=== PATIENT | female | born 1935 | race Caucasian/White ===

== ENCOUNTER 2018-12-31 10:42 | Emergency (ER) | payer MEDICARE, OTHER ==
[~2018-12-31] VITALS: Ht 165.1 cm; Wt 84.4 kg
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
[2018-12-31] MEDS ORDERED: IBUPROFEN 600 MG TABLET PO ONE ×2 (11:47→12:00)
[2018-12-31 12:51] VITALS: BP 155/98
--- NOTE | 2018-12-31 12:55 | NUR ---
Patient does not wish to proceed with medical care recommended by Dr. Payne. Patient given information related to possible complications, up to and including , which could occur as a result of leaving the hospital at this time. Patient verbalizes understanding of risks involved due to leaving against medical advice. Patient refused to sign AMA form.
== END 2018-12-31 12:52 | disposition left against medical advice (07) ==
LOC: ER 10:42
DX: M25.512 Pain in left shoulder (principal); M54.2 Cervicalgia; R07.89 Other chest pain; E78.00 Pure hypercholesterolemia, unspecified; Z85.3 Personal history of malignant neoplasm of breast; V49.59XA Passenger injured in collision with other motor vehicles in traffic accident, initial encounter; Y93.89 Activity, other specified; Y92.410 Unspecified street and highway as the place of occurrence of the external cause; Y99.8 Other external cause status
CPT/HCPCS: 71045; 72050; 99283; A4606